=== PATIENT | male | born 1950 | race Caucasian/White ===

== ENCOUNTER → 2025-01-14 11:29 | Outpatient (REF) | payer MEDICARE, SELFPAY | LOC: HWRAD 11:29 | PROVIDERS: ATTENDING PHYSICIAN Internal Medicine Cardiovascular Disease; FAMILY PHYSICIAN Family Medicine | DX: I71.20 Thoracic aortic aneurysm, without rupture, unspecified (principal) | CPT/HCPCS: 71250 ==